=== PATIENT | female | born 1985 | race Two or more races ===

== ENCOUNTER → 2018-01-25 | Outpatient (CLI) | payer OTHER ==
[2018-01-25 13:37] LABS: BASOPHIL % 0.3 % (0-2); PLATELET COUNT 248 x10^3mcL (130-400); RED CELL DISTRIBUTION WIDTH 12.5 % (11.5-14.5)
[2018-01-25 14:09] LABS: ALBUMIN 4.1 g/dL (3.4-5.0); ALKALINE PHOSPHATASE 90 U/L (46-116); ALT/SGPT 49 U/L (14-59); AST/SGOT 26 U/L (15-37); BILIRUBIN DIRECT 0.15 mg/dL (0.0-0.2); BILIRUBIN TOTAL 0.43 mg/dL (0.20-1.00); CALCIUM 9.1 mg/dL (8.5-10.1); CARBON DIOXIDE 28.5 mmol/L (21-32); CHOLESTEROL 145 mg/dL (<200); CHOLESTEROL/HDL RATIO 3.8; CREATININE SERUM 0.6 mg/dL (0.6-1.0); FREE T4 1.57 ng/dL (0.76-1.46); GFR1 > 60 mL/min; GLUCOSE SERUM 78 mg/dL (74-106); HDL CHOLESTEROL 38 mg/dL (40-60); POTASSIUM SERUM 4.6 mmol/L (3.5-5.1); SODIUM SERUM 146 mmol/L (136-145); T4(THYROXINE) 7.4 ug/dL (4.7-13.3); TOTAL PROTEIN, SERUM 7.8 g/dL (6.4-8.2); TRIGLYCERIDES 132 mg/dL (<150)
[2018-01-25 14:16] LABS: CHLORIDE SERUM 108 mmol/L (98-107)
== END | disposition home or self-care (01) ==
LOC: LB 10:10
PROVIDERS: Internal Medicine
DX: Z00.00 Encounter for general adult medical examination without abnormal findings (principal)
CPT/HCPCS: 84439

== ENCOUNTER → 2018-10-19 | Outpatient (CLI) | payer OTHER ==
[2018-10-19 12:03] LABS: FREE T4 1.31 ng/dL (0.76-1.46)
== END | disposition home or self-care (01) ==
LOC: LB 09:33
DX: E03.8 Other specified hypothyroidism (principal); E55.9 Vitamin D deficiency, unspecified
CPT/HCPCS: 84439; 86376

== ENCOUNTER → 2019-05-07 | Outpatient (CLI) | payer OTHER ==
[2019-05-07 07:51] LABS: BASOPHIL % 0.8 % (0-2); PLATELET COUNT 224 x10^3mcL (130-400); RED CELL DISTRIBUTION WIDTH 12.9 % (11.5-14.5)
[2019-05-07 08:52] LABS: FREE T4 1.32 ng/dL (0.76-1.46)
[2019-05-07 09:00] LABS: ALKALINE PHOSPHATASE 75 U/L (46-116); ALT/SGPT 25 U/L (14-59); AST/SGOT 10 U/L (15-37); BILIRUBIN DIRECT 0.14 mg/dL (0.0-0.2); BILIRUBIN TOTAL 0.57 mg/dL (0.20-1.00); CALCIUM 9.4 mg/dL (8.5-10.1); CARBON DIOXIDE 23.5 mmol/L (21-32); CHLORIDE SERUM 104 mmol/L (98-107); CHOLESTEROL 152 mg/dL (<200); CREATININE SERUM 0.7 mg/dL (0.6-1.0); GFR1 > 60 mL/min; GLUCOSE SERUM 99 mg/dL (74-106); POTASSIUM SERUM 4.2 mmol/L (3.5-5.1); SODIUM SERUM 141 mmol/L (136-145); TOTAL PROTEIN, SERUM 7.4 g/dL (6.4-8.2); TRIGLYCERIDES 163 mg/dL (<150)
[2019-05-07 10:15] LABS: CHOLESTEROL/HDL RATIO 4.6; HDL CHOLESTEROL 33 mg/dL (40-60)
== END | disposition home or self-care (01) ==
LOC: LB 07:15
PROVIDERS: Internal Medicine
DX: Z00.00 Encounter for general adult medical examination without abnormal findings (principal)
CPT/HCPCS: 84439

== ENCOUNTER 2020-01-11 11:07 | Emergency (ER) | payer OTHER ==
[~2020-01-11] VITALS: Ht 157.5 cm; Wt 69.9 kg
[2020-01-11 11:41] VITALS: Ht 157.5 cm; Wt 69.9 kg
[2020-01-11 14:06] VITALS: BP 120/89
== END 2020-01-11 14:06 | disposition home or self-care (01) ==
LOC: ED 11:07
DX: S29.012A Strain of muscle and tendon of back wall of thorax, initial encounter (principal); E03.9 Hypothyroidism, unspecified; Z88.0 Allergy status to penicillin; X58.XXXA Exposure to other specified factors, initial encounter; Y93.89 Activity, other specified; Y92.89 Other specified places as the place of occurrence of the external cause; Y99.8 Other external cause status
CPT/HCPCS: J1885

== ENCOUNTER → 2020-10-19 | Outpatient (CLI) | payer OTHER ==
[2020-10-19 08:50] LABS: ALKALINE PHOSPHATASE 70 U/L (46-116); ALT/SGPT 18 U/L (14-59); AST/SGOT 10 U/L (15-37); BILIRUBIN TOTAL 0.6 mg/dL (0.20-1.00); CALCIUM 8.7 mg/dL (8.5-10.1); CARBON DIOXIDE 26.4 mmol/L (21-32); CHLORIDE SERUM 102 mmol/L (98-107); CREATININE SERUM 0.7 mg/dL (0.6-1.0); GFR1 > 60 mL/min; GLUCOSE SERUM 95 mg/dL (74-106); HDL CHOLESTEROL 38 mg/dL (40-60); POTASSIUM SERUM 4.3 mmol/L (3.5-5.1); SODIUM SERUM 139 mmol/L (136-145); T4(THYROXINE) 7.3 ug/dL (4.7-13.3); TOTAL PROTEIN, SERUM 7.2 g/dL (6.4-8.2); TRIGLYCERIDES 88 mg/dL (<150)
[2020-10-19 08:58] LABS: CHOLESTEROL 134 mg/dL (<200); CHOLESTEROL/HDL RATIO 3.5
[2020-10-19 11:28] LABS: BASOPHIL % 0.4 % (0.2-1.3); RED CELL DISTRIBUTION WIDTH 12.9 % (12.3-17.7)
[2020-10-19 12:21] LABS: PLATELET COUNT 232 x10^3mcL (179-408)
== END | disposition home or self-care (01) ==
LOC: LB 07:21
PROVIDERS: ATTEND Internal Medicine
DX: Z00.00 Encounter for general adult medical examination without abnormal findings (principal)
CPT/HCPCS: 82670